=== PATIENT | female | born 1965 | race Two or more races ===

== ENCOUNTER 2018-05-08 10:58 | Emergency (ER) | payer BC ==
[~2018-05-08] VITALS: Ht 165.1 cm; Wt 61.2 kg
[2018-05-08 11:34] LABS: BASOPHILS # (AUTO) 0.1 /CMM (0.0-0.2); BASOPHILS % (AUTO) 1.3 % (0.0-2.0); EOSINOPHILS % (AUTO) 4.3 % (0.0-6.0); HEMATOCRIT 41 % (33-45); HEMOGLOBIN 13.6 g/dL (11.5-14.8); LYMPHOCYTES # (AUTO) 2.3 /CMM (0.8-4.8); LYMPHOCYTES % (AUTO) 33.6 % (20.0-44.0); MEAN CORPUSCULAR HEMOGLOBIN 30 PG (26.0-33.0); MEAN CORPUSCULAR HGB CONC 33 g/dl (31.0-36.0); MEAN CORPUSCULAR VOLUME 89 fL (82-100); MONOCYTES # (AUTO) 0.4 /CMM (0.1-1.30); MONOCYTES % (AUTO) 6.6 % (2.0-12.0); NEUTROPHILS # (AUTO) 3.7 /CMM (1.8-8.9); NEUTROPHILS % (AUTO) 54.2 % (43.0-81.0); PLATELET COUNT (AUTO) 306 /CMM (150-450); RDW COEFFICIENT OF VARIATION 12.1 (11.5-15.0); RED BLOOD CELL COUNT(AUTO) 4.62 MIL/uL (4.0-5.2); WHITE BLOOD COUNT (AUTO) 6.8 K/uL (4.3-11.0)
--- NOTE | 2018-05-08 11:35 | NUR ---
PT C/O LT CHEST PAIN, NON-RADIATING STARTED ON SATURDAY, WORSE TODAY. " SHARP, PRESSURE WITH DIZZINESS & PAIN WITH DEEP BREATHING ". PT SHE TOOK METOPROLOL & XANAX TODAY. VSS. SKIN PINK WARM & DRY, NO RESP DISTRESS NOTED, ON MONITOR, NSR W/ NO ECTOPY NOTED. WILL CONT TO MONITOR. PT SEEN & EVAL'D BY DR. QUIROZ.
[2018-05-08 11:45] LABS: CALCIUM, SERUM 9.3 mg/dL (8.5-10.1); CARBON DIOXIDE 25 mmol/L (21-32); CHLORIDE 104 mmol/L (98-107); CREATININE 0.8 mg/dL (0.6-1.3); GLUCOSE 131 mg/dL (74-106); POTASSIUM 3.9 mmol/L (3.5-5.1); SODIUM SERUM 138 mmol/L (136-145); UREA NITROGEN, BLOOD 16 mg/dL (7-18)
[2018-05-08 11:46] LABS: INR 0.92 (0.85-1.15)
[2018-05-08 11:52] LABS: TROPONIN I < 0.017 ng/mL (0.00-0.056)
[2018-05-08 13:11] VITALS: BP 127/71
--- NOTE | 2018-05-08 13:13 | NUR ---
Patient discharged to home in stable condition. Written and verbal after care instructions given. Patient verbalizes understanding of instruction.
== END 2018-05-08 13:12 | disposition home or self-care (01) ==
LOC: ER 11:01
DX: R00.2 Palpitations (principal); R07.89 Other chest pain
CPT/HCPCS: 36415; 71045-TC; 80048-TC; 84443-TC; 84484-TC; 85025-TC; 85730-TC; A4606; Z7610